=== PATIENT | male | born 1980 | race Caucasian/White ===

== ENCOUNTER 2016-06-03 09:12 | Emergency (ER) | payer OTHER ==
[2016-06-03] MEDS ORDERED: IBUPROFEN 800 MG TABLET PO STA (10:45)
[2016-06-03] MEDS ORDERED: IBUPROFEN 800 MG TABLET PO ONE (10:49)
== END 2016-06-03 10:58 | disposition home or self-care (01) ==
DX: S93.402A Sprain of unspecified ligament of left ankle, initial encounter (principal); X50.1XXA Overexertion from prolonged static or awkward postures, initial encounter
CPT/HCPCS: 73610; 99283; A9270

== ENCOUNTER 2018-09-25 09:40 | Outpatient (CLI) | payer OTHER ==
--- NOTE | 2018-09-25 10:43 | XRAY Report ---
Reason: CHRONIC LOW BACK PAIN Procedure Date: 09/25/2018 Accession Number: [id number] / [id number] Procedure: XR - Lumbar Spine 2 View CPT Code: FULL RESULT: EXAM: LUMBOSACRAL SPINE RADIOGRAPHY EXAM DATE: 09/25/2018 09:48 AM. CLINICAL HISTORY: Chronic low back pain. COMPARISONS: None. TECHNIQUE: 3 views. FINDINGS: Alignment: Normal. No spondylolisthesis or scoliosis. Bones: Five [id number]-[id number] lumbar vertebral bodies are present. No fractures or bone lesions. Disks: There is mild loss of disk space height with marginal osteophytosis at L5-S1. Facets: Moderate facet arthropathy is seen at the L5 level. Sacroiliac Joints: Unremarkable. Soft Tissues: Normal. The visualized bowel gas pattern is normal. IMPRESSION: Mild to moderate L5 predominant degenerative changes. RADIA
== END 2018-09-25 09:41 | disposition home or self-care (01) ==
LOC: DI 09:40
PROVIDERS: ATTEND Nurse Practitioner
DX: M51.37 Other intervertebral disc degeneration, lumbosacral region (principal); M47.816 Spondylosis without myelopathy or radiculopathy, lumbar region
CPT/HCPCS: 72100

== ENCOUNTER 2021-06-21 13:12 | Emergency (ER) | payer OTHER ==
[2021-06-21 13:19] VITALS: BP 137/68
--- NOTE | 2021-06-21 13:28 | ED Physician Documentation ---
PD HPI UPPER EXT INJURY - Stated complaint Stated Complaint: RT HAND INJ - Chief complaint Chief Complaint: Ext Problem - History obtained from History obtained from: Patient - Additonal information Additional information: 40-year-old right-handed gentleman, otherwise healthy without a history of joint issues developed some right thumb pain about 2 weeks ago. 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 It was not bothering him much but over the last couple of days has become much more painful and feeling inflamed last night with limitation to activity since last night. Review of Systems Constitutional: reports: Reviewed and negative Eyes: reports: Reviewed and negative Ears: reports: Reviewed and negative Nose: reports: Reviewed and negative PD PAST MEDICAL HISTORY - Past Surgical History Past Surgical History: No - Present Medications Home Medications: Ambulatory Orders Medication Instructions Recorded Confirmed HYDROcod/ACETAM 5/325 [[place] 5/325] 1 - 2 ea PO Q6H PRN #20 tablet 06/03/16 cephALEXin [Keflex] 500 mg PO Q6H #28 cap 06/21/21 - Allergies Allergies/Adverse Reactions: Allergies Allergy/AdvReac Type Severity Reaction Status Date / Time No Known Drug Allergies Allergy Verified 06/21/21 13:16 - Social History Does the pt smoke?: No Smoking Status: Never smoker Does the pt drink ETOH?: Yes Does the pt have substance abuse?: No PD ED PE NORMAL - Vitals Vital signs reviewed: Yes - General General: Alert and oriented X 3, No acute distress - HEENT HEENT: PERRL, EOMI - Neck Neck: Supple, no meningeal sign, No bony TTP - Extremities Extremities: Other (The right thumb is swollen from the tip down to the MCP with limited range of motion especially in flexion. He is tender especially on the interphalangeal joint. There does not seem to be much tenderness of the MCP and there is no ligamentous laxity of the MCP.) - Neuro Neuro: Alert and oriented X 3, Normal speech - Psych Psych: Normal mood, Normal affect Results - Vitals Vitals: Vital Signs - 24 hr 06/21/21 13:16 Temperature 36.5 C Heart Rate 70 Respiratory 16 Rate Blood Pressure 137/68 H O2 Saturation 98 Oxygen O2 Source Room air - Labs Labs: Laboratory Tests 06/21/21 06/21/21 06/21/21 14:01 14:01 14:01 WBC 6.0 RBC 4.51 L Hgb 13.6 L Hct 39.8 L MCV 88.2 MCH 30.2 MCHC 34.2 RDW 12.9 Plt Count 269 MPV 9.1 Neut # (Auto) 4.0 Lymph # (Auto) 1.3 L [place] # (Auto) 0.4 Eos # (Auto) 0.2 Baso # (Auto) 0.0 Absolute Nucleated RBC 0.00 Nucleated RBC % 0.0 ESR 41 H Sodium 136 Potassium 3.7 Chloride 101 Carbon Dioxide 30 Anion Gap 5.0 L BUN 15 Creatinine 0.9 Estimated GFR (MDRD) 93 Glucose 107 H Uric Acid 5.6 Calcium 9.2 C-Reactive Protein 1.2 H - Rads (name of study) Three-view x-ray of the right thumb is unremarkable Radiology: EMP read contemporaneously PD MEDICAL DECISION MAKING - ED course ED course: 40-year-old gentleman with relatively atraumatic thumb pain on his dominant side. Examination demonstrates tenderness around the interphalangeal joint and difficulty with range of motion but no obvious signs of infection, no redness, no warmth. He does not have tenderness along the flexor tendon, and actually feels more comfortable with the thumb in extension. As such I do not think he has flexor tenosynovitis. Gout is considered, he has a family history of this but less likely with the uric acid level being normal in the atypical joint location. Out of an abundance of caution I am starting him on antibiotics for potential infection in his hand and he is given close return precautions. Departure - Departure Disposition: 01 Home, Self Care Clinical Impression: Finger swelling Condition: Good Record reviewed to determine appropriate education?: Yes Instructions: ED Acute Pain [facility]O Prescriptions: cephALEXin [Keflex] 500 mg PO Q6H #28 cap Comments: I sent your prescription electronically to the [facility] pharmacy at the corner of [facility] [address] here in [place]. As discussed not clear why your thumb is painful and swollen. The x-ray is normal, and your lab work demonstrates mild anemia which is likely inconsequential to this visit and no evidence of gout with the normal uric acid. I am starting you on some antibiotics out of an abundance of caution, return if you develop fever, worsen in any way or fail to improve over the next few days.
--- NOTE | 2021-06-21 13:46 | XRAY Report ---
PROCEDURE: Finger(s) RT INDICATIONS: R thumb pain TECHNIQUE: AP hand, 2 views of the first finger(s) acquired. COMPARISON: None FINDINGS: Bones: No fractures or dislocations. No suspicious bony lesions. Soft tissues: No suspicious soft tissue calcifications. IMPRESSION: No gross acute right thumb fracture or dislocation is seen. Reviewed by: Alex Steele MD on 06/21/2021 1:45 PM PST Approved by: Alex Steele MD on 06/21/2021 1:45 PM [facility] Station ID: [id number]
[2021-06-21 14:05] LABS: BASOPHILS % (AUTO) 0.7 %; EOSINOPHILS # (AUTO) 0.2 10^3/uL (0.0-0.7); EOSINOPHILS % (AUTO) 3.3 %; HCT - HEMATOCRIT 39.8 % (42.0-52.0); HGB - HEMOGLOBIN 13.6 g/dL (14.0-18.0); LYMPHOCYTES # (AUTO) 1.3 10^3/uL (1.5-3.5); LYMPHOCYTES % (AUTO) 22.2 %; MEAN CORPUSCULAR HEMOGLOBIN 30.2 pg (27.0-31.0); MEAN CORPUSCULAR HGB CONC 34.2 g/dL (32.0-36.0); MEAN CORPUSCULAR VOLUME 88.2 fL (80.0-94.0); MEAN PLATELET VOLUME 9.1 fL (7.4-11.4); MONOCYTES # (AUTO) 0.4 10^3/uL (0.0-1.0); MONOCYTES % (AUTO) 6.8 %; NEUTROPHILS % (AUTO) 66.8 %; PLT - PLATELET COUNT 269 10^3/uL (130-450); RED BLOOD COUNT 4.51 10^6/uL (4.70-6.10); RED CELL DISTRIBUTION WIDTH 12.9 % (12.0-15.0)
[2021-06-21 14:24] LABS: CALCIUM 9.2 mg/dL (8.5-10.3); CREATININE 0.9 mg/dL (0.6-1.2); CRP - C-REACTIVE PROTEIN 1.2 mg/dL (0-1.0); POTASSIUM 3.7 mmol/L (3.5-5.0); URIC ACID 5.6 mg/dL (2.6-7.2)
== END 2021-06-21 14:48 | disposition home or self-care (01) ==
LOC: ED 13:12
DX: R22.31 Localized swelling, mass and lump, right upper limb (principal)
CPT/HCPCS: 36415; 80048; 84550; 85025; 85651; 86140; 99282; 99284

== ENCOUNTER 2023-05-15 11:48 | Outpatient (CLI) | payer OTHER ==
--- NOTE | 2023-05-15 14:33 | XRAY Report ---
PROCEDURE: Chest 2V INDICATIONS: COUGH WITH SOB TECHNIQUE: 2 views of the chest were acquired. COMPARISON: None. FINDINGS: Surgical changes and devices: None. Lungs and pleura: No pleural effusions or pneumothorax. Bilateral perihilar, right greater than left bronchial wall thickening. No dense consolidations.. Mediastinum: Mediastinal contours appear normal. Heart size is normal. Bones and chest wall: No suspicious bony lesions. Overlying soft tissues appear unremarkable. IMPRESSION: Bronchial wall thickening suggesting bronchitis or other viral or interstitial pneumonitis. Reviewed by: Carolyn Chambers MD on 05/15/2023 2:32 PM PST Approved by: Carolyn Chambers MD on 05/15/2023 2:32 PM PST Station ID: [id number]
== END 2023-05-15 11:49 | disposition home or self-care (01) ==
LOC: DI.N 11:48
PROVIDERS: ATTEND Physician Assistant
DX: R06.02 Shortness of breath (principal); R05.9 Cough, unspecified

== ENCOUNTER 2023-06-09 09:15 | Outpatient (CLI) | payer OTHER ==
--- NOTE | 2023-06-09 18:19 | XRAY Report ---
PROCEDURE: Knee 3V RT INDICATIONS: KNEE PAIN, RIGHT TECHNIQUE: 3 views of the knee was obtained. COMPARISON: None FINDINGS: Bones: No fractures or dislocations. No suspicious bony lesions. Mild medial lateral compartmental joint space narrowing Soft tissues: Large knee joint effusion. No suspicious soft tissue calcifications or masses. IMPRESSION: Mild joint space narrowing with large suprapatellar joint effusion. No fracture. Reviewed by: Jm Carter MD on 06/09/2023 5:18 PM [place] Approved by: Jm Carter MD on 06/09/2023 5:18 PM [place] Station ID: [id number]
== END 2023-06-09 09:30 | disposition home or self-care (01) ==
LOC: DI.N 09:15
PROVIDERS: ATTEND Family Medicine
DX: M17.11 Unilateral primary osteoarthritis, right knee (principal); M25.461 Effusion, right knee

== ENCOUNTER 2023-07-03 09:00 | Outpatient (CLI) | payer OTHER ==
--- NOTE | 2023-07-03 14:08 | XRAY Report ---
PROCEDURE: Knee 2 View RT INDICATIONS: Right knee pain, bilat ap, right pa tunnel TECHNIQUE: 2 weightbearing views of the knee(s) were acquired. COMPARISON: 06/09/2023. FINDINGS: Bones: No fractures or dislocations. No suspicious bony lesions. There are degenerative changes o f the medial and lateral femorotibial compartments bilaterally with mild medial compartment joint spa ce narrowing more pronounced on the left. Marginal osteophyte formation. Mild chondrocalcinosis of th e medial and lateral femorotibial compartments on the right. Soft tissues: No suspicious soft tissue calcifications or masses. IMPRESSION: Degenerative changes of the bilateral medial and lateral femorotibial compartments. Chondrocalcinosis of the right knee. Reviewed by: Jeronimo Pope MD on 07/03/2023 1:06 PM [facility] Approved by: Jeronimo Pope MD on 07/03/2023 1:06 PM [facility] Station ID: [id number]
== END 2023-07-03 23:59 | disposition home or self-care (01) ==
LOC: DI.WOS 09:00
PROVIDERS: ATTEND Physician Assistant Surgical
DX: M17.11 Unilateral primary osteoarthritis, right knee (principal); M11.261 Other chondrocalcinosis, right knee

== ENCOUNTER 2023-07-23 14:35 | Emergency (ER) | payer OTHER ==
[2023-07-23 14:53] VITALS: BP 138/82; O2SAT 97
--- NOTE | 2023-07-23 14:55 | ED Physician Documentation ---
PD HPI LOWER EXT INJURY - Stated complaint Stated Complaint: RT KNEE INJ - Chief complaint Chief Complaint: Ext Problem - History obtained from History obtained from: Patient - History of Present Illness PD HPI LOW EXT INJURY LOCATION: Right, Knee Type of injury: Twist (he was walking with carrying a cart and had twisting of the knee. No fall nor impact.) Where injury occurred: Work Timing - onset: Today Timing - details: Abrupt onset, Still present (with large amount of swelling/effusion already.) Worsened by: Palpating Associated symptoms: Swelling Review of Systems Skin: denies: Abrasion (s), Laceration (s) Neurologic: denies: Focal weakness, Numbness PD PAST MEDICAL HISTORY - Past Medical History Past Medical History: No - Past Surgical History Past Surgical History: Yes - Allergies Allergies/Adverse Reactions: Allergies Allergy/AdvReac Type Severity Reaction Status Date / Time No Known Drug Allergies Allergy Verified 07/23/23 14:47 - Social History Does the pt smoke?: No Smoking Status: Never smoker Does the pt drink ETOH?: Yes Does the pt have substance abuse?: No PD ED PE NORMAL - Vitals Vital signs reviewed: Yes - General General: Alert and oriented X 3, No acute distress, Well developed/nourished - Derm Derm: Normal color, Warm and dry - Extremities Extremities: Other (right knee with large effusion. tender anteriorly moslty. cruciate and collateral testing without pain nor laxity. Rotational pain elicited. Patellar tendon feels intact. ) - Neuro Neuro: Alert and oriented X 3, No motor deficit, No sensory deficit, Normal speech Results - Vitals Vitals: Vital Signs - 24 hr 07/23/23 14:43 Temperature 36.6 C Heart Rate 83 Respiratory 16 Rate Blood Pressure 138/82 H O2 Saturation 97 Oxygen O2 Source Room air - Rads (name of study) right knee Relevant Findings:: Prelim report reviewed, EMP independent interpretation of test (no fractures) Procedures - Arthrocentesis Joint: Knee, Right Preparation: Sterile prep and drape Anesthesia: Lidocaine 1% Fluid: Bloody, Fluid obtained - cc (120) Aftercare: Dressing applied, No complications, Patient tolerated well PD Medical Decision Making - ED course Complexity details: considered differential (knee injury with large bloody effusion. Presume meniscal injury. ), d/w patient Departure - Departure Disposition: 01 Home, Self Care Clinical Impression: Knee effusion, right, Knee injury Condition: Stable Record reviewed to determine appropriate education?: Yes Instructions: ED Meniscal Injury Knee Poss Follow-Up: [facility] [Provider Group] [facility] [Provider Group] Comments: Use the [place] wrap to help keep swelling down. Knee immobilizer to help support the knee ligaments for now. When you get your newer brace then you can switch to that. For now the immobilizer itself will be most useful initially. Crutches for partial to no weightbearing. Ibuprofen or naproxen or similar anti-inflammatory. Add Tylenol every 4-6 hours if needed for pain. Follow-up with your primary care or orthopedics for recheck of this after about a week or so, call tomorrow for an appointment. Your major ligament testing to the limits of what is possible right now with the injury seems less likely collateral and cruciate ligaments. I presume you have some tearing of the meniscus. Forms: PCP List Discharge Date/Time: 07/23/23 16:12
--- NOTE | 2023-07-23 15:16 | XRAY Report ---
PROCEDURE: Knee 4+V RT INDICATIONS: R knee pain TECHNIQUE: 4views of the knee(s) were acquired. COMPARISON: 07/03/2023 FINDINGS: Bones: No fractures or dislocations. Mild degenerative changes are demonstrated. No suspicious bony lesions. Soft tissues: Moderate knee joint effusion. No suspicious soft tissue calcifications or masses. IMPRESSION: No acute bony abnormality. Moderate joint effusion. Mild degenerative changes. Reviewed by: Kyle Bryan MD on 07/23/2023 3:15 PM PDT Approved by: Kyle Bryan MD on 07/23/2023 3:15 PM PDT Station ID: [id number]
== END 2023-07-23 16:12 | disposition home or self-care (01) ==
LOC: ED 14:35
DX: S89.81XA Other specified injuries of right lower leg, initial encounter (principal); M25.461 Effusion, right knee; X50.1XXA Overexertion from prolonged static or awkward postures, initial encounter
CPT/HCPCS: 20610; 99283